=== PATIENT | female | born 1985 | race Caucasian/White ===

== ENCOUNTER 2019-02-28 10:28 | Emergency (ER) | payer BC, MEDICAID ==
--- NOTE | 2019-02-28 10:37 | EDM.PDOC ---
ED HPI GENERAL MEDICAL PROBLEM - General Chief Complaint: Lower Extremity Injury/Pain Stated Complaint: Left ankle pain Time Seen by Provider: 02/28/19 10:30 Source of Information: Reports: Patient, Family (Sister, Skye), Old Records ( [facility] chart/EMR) History Limitations: Reports: No Limitations - History of Present Illness INITIAL COMMENTS - FREE TEXT/NARRATIVE: The patient was brought to the emergency room via private automobile by her sister for evaluation of 8/10 sharp throbbing left ankle pain after she tripped at her sister's home at about 00:30 hours this past evening. Symptoms have been refractory to topical ice packs and 600 mg of ibuprofen, which was taken at 10 AM this morning. She has not injured this ankle in the past. Patient has been able to bear weight on her ankle with no history of instability, paresthesias, neurological deficits, neck/back pain, or other significant fall/injury. No recent history of abdominal pain, heartburn, nausea, diarrhea, melena, gross hematochezia, or any food intolerance, including fatty foods, etc.. The patient also denies any recent fever, cough, wheezing, dyspnea, etc.. Onset: Today, Sudden Onset Date: 02/28/19 Onset Time: 00:30 Duration: Constant Location: Reports: Lower Extremity, Left. 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 Left Ankle Pain Score (Numeric/FACES): 8 - Related Data Allergies Allergy/AdvReac Type Severity Reaction Status Date / Time Sulfa (Sulfonamide Allergy Rash Verified 02/28/19 11:23 Antibiotics) sulfamethoxazole Allergy Rash Verified 02/28/19 11:23 [From Bactrim] trimethoprim [From Bactrim] Allergy Rash Verified 02/28/19 11:23 Past Medical History 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 - Past Imaging History Past Imaging History: Reports: Ultrasound (Multiple previous OB ultrasounds) Social & Family History - Tobacco Use Smoking Status *Q: Current Every Day Smoker Tobacco Use Within Last Twelve Months: Cigarettes Years of Tobacco use: 17 Packs/Tins Daily: 0.5 Packs/Tins Daily Comment: Started smoking at age 14 with maximum use of one pack per day. Used Tobacco, but Quit: No Smoking Cessation Information Provided To Patient: Yes - Caffeine Use Caffeine Use: Reports: Coffee (One cup per day). 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 ED EXAM, GENERAL - Physical Exam Exam: See Below Exam Limited By: No Limitations General Appearance: Alert, WD/WN, No Apparent Distress Head: Atraumatic, Normocephalic. No: Facial Swelling, Facial Tenderness, Sinus Tenderness Neck: Normal Inspection, Supple, Non-Tender, Full Range of Motion. No: Lymphadenopathy (L), Lymphadenopathy (R), Thyromegaly Respiratory/Chest: No Respiratory Distress, No Accessory Muscle Use, Chest Non- Tender, Rhonchi (Occasional bilateral). No: Rales, Wheezing Cardiovascular: Normal Peripheral Pulses, Regular Rate, Rhythm, No Edema, No Gallop, No JVD, No Murmur, No Rub. No: Gallop/S4, Friction Rub Peripheral Pulses: 2+: Radial (L), Radial (R), Dorsalis Pedis (L) GI/Abdominal: Normal Bowel Sounds, Soft, Non-Tender, No Organomegaly, No Distention, No Abnormal Bruit, No Mass, Pelvis Stable. No: Guarding (Female) Exam: Deferred Rectal (Female) Exam: Deferred Back Exam: Normal Inspection, Full Range of Motion. No: CVA Tenderness (L), CVA Tenderness (R), Muscle Spasm Extremities: No Pedal Edema, Normal Capillary Refill, Joint Swelling (Mild lateral left malleolar effusion with moderate localized tenderness and secondary decreased range of motion with no joint instability including negative anterior drawers, etc.), Leg Pain (Left ankle), Limited Range of Motion (As above). No: Grayson's Sign, Increased Warmth Neurological: Alert, Oriented, CN II-XII Intact, Normal Cognition, Normal Gait, Normal Reflexes (Negative Babinski's), No Motor/Sensory Deficits Psychiatric: Normal Affect, Normal Mood Skin Exam: Warm, Dry, Intact, Normal Color, No Rash. No: Diaphoretic, Ecchymosis, Wound/Incision Lymphatic: No Adenopathy ED TRAUMA EXTREMITY PROCEDURES - Splinting Left Lower Extremity Pre-Procedure NV Status: Normal Post-Procedure NV Status: Normal Splint Material: Air Splint Splint Design: Other (Air ankle splint with four-inch Narayan wrap) Applied & Form Fitted By: Nurse Provider Post-Splint Application NV Check: NV Status Normal, Good Position Complications: No Course - Vital Signs Last Recorded V/S: Last Vital Signs Temp 36.8 C 02/28/19 10:40 Pulse 82 02/28/19 10:40 Resp 18 02/28/19 10:40 BP 122/64 02/28/19 10:40 Pulse Ox 100 02/28/19 10:40 Vital Signs - 24 hr 02/28/19 10:40 Temperature [ 36.8 C Temporal] Pulse, 82 Peripheral [ Left Pulse Oximetry] Respiratory 18 Rate Blood Pressure 122/64 [Left Upper Arm ] O2 Sat by Pulse 100 Oximetry - Orders/Labs/Meds Orders: Active Orders 24 hr Category Date Time Status Ankle Min 3V Lt [CR] Stat Exams 02/28/19 10:37 Taken Durable Medical Equipment for Discharge [DME for Oth 02/28/19 11:27 Ordered Discharge] [COMM] Routine Durable Medical Equipment for Discharge [DME for Oth 02/28/19 11:28 Ordered Discharge] [COMM] Routine Obtain Past Medical Record [OM.PC] Routine Ot 02/28/19 10:37 Active Labs: None Meds: none - Radiology Interpretation Free Text/Narrative:: X-rays of the left ankle, 3 views, shows no evidence of fracture, dislocation, etc. Ankle mortise is intact. Departure - Departure Time of Disposition: 11:40 Disposition: Home, Self-Care 01 Condition: Good Clinical Impression: Tobacco abuse counseling Left ankle sprain Qualifiers: Encounter type: initial encounter Involved ligament of ankle: tibiofibular ligament Qualified Code(s): S93.432A - Sprain of tibiofibular ligament of left ankle, initial encounter - Discharge Information *PRESCRIPTION DRUG MONITORING PROGRAM REVIEWED*: Not Applicable *COPY OF PRESCRIPTION DRUG MONITORING REPORT IN PATIENT MAGNO: Not Applicable Instructions: Ankle Sprain Referrals: Martina Tena PA-C [Primary Care Provider] - Forms: ED Department Discharge Additional Instructions: 1. Follow up with your regular provider in 10-14 days as needed, if symptoms persist. Bring these discharge instructions with you to that visit.. 2. Followup with your regular provider in 10-14 days as directed. Bring these discharge instructions with you to that visit. 3. Ice packs and leg elevation as directed 4. Wear Narayan wrap and air ankle splint at all times with exception of bathing for one week then as needed thereafter 5. Ambulation and weightbearing as tolerated/directed 6. Stop all tobacco use NELDA as directed/per provided information and consider contacting Quit LIne, etc.. 7. Immediately after this visit verify that your cellular telephone's voicemail has been activated and is empty. Also verify that your home telephone 's answering machine is operating properly and has space to receive messages. Note that it is sometimes necessary for us to be able to contact you at a later date to discuss your medical care. 8. Please remember that we are ALWAYS here for you and want to answer any questions you may have. Feel free to call the hospital any time and we call you back NELDA. - Problem List & Annotations (1) Left ankle sprain SNOMED Code(s): 71780811, [id number] Code(s): S93.402A - SPRAIN OF UNSPECIFIED LIGAMENT OF LEFT ANKLE, INIT ENCNTR Status: Acute Priority: High Current Visit: No Onset Date: Annotation/Comment:: Patient placed in an air ankle splint with additional Narayan wrap. She does not wish to have crutches or a work excuse. Symptomatic relief as per discharge instructions. Activity restrictions, etc. discussed. The patient does feel that she can perform her normal work duties with Narayan wrap and air ankle splint. Qualifiers: Encounter type: initial encounter Involved ligament of ankle: tibiofibular ligament Qualified Code(s): S93.432A - Sprain of tibiofibular ligament of left ankle, initial encounter (2) Tobacco abuse counseling SNOMED Code(s): 638511441, 950784065, 066460114 Code(s): Z71.6 - TOBACCO ABUSE COUNSELING Status: Chronic Priority: Medium Current Visit: No Annotation/Comment:: Tobacco cessation strongly encouraged with information provided at discharge. - Problem List Review Problem List Initiated/Reviewed/Updated: Yes - My Orders Last 24 Hours: My Active Orders 02/28/19 10:37 Ankle Min 3V Lt [CR] Stat Obtain Past Medical Record [OM.PC] Routine 02/28/19 11:27 Durable Medical Equipment for Discharge [DME for Discharge] [COMM] Routine 02/28/19 11:28 Durable Medical Equipment for Discharge [DME for Discharge] [COMM] Routine - Assessment/Plan Last 24 Hours: My Active Orders 02/28/19 10:37 Ankle Min 3V Lt [CR] Stat Obtain Past Medical Record [OM.PC] Routine 02/28/19 11:27 Durable Medical Equipment for Discharge [DME for Discharge] [COMM] Routine 02/28/19 11:28 Durable Medical Equipment for Discharge [DME for Discharge] [COMM] Routine Assessment:: As above Plan: As above. Extensive precautions were given to the patient and her sister, who are in agreement with the treatment plan. See Patient Instructions for further treatment and plan.
== END 2019-02-28 11:45 | disposition home or self-care (01) ==
LOC: LL.ED 10:28
DX: S93.432A Sprain of tibiofibular ligament of left ankle, initial encounter (principal); Z88.2 Allergy status to sulfonamides; Z88.1 Allergy status to other antibiotic agents; F17.210 Nicotine dependence, cigarettes, uncomplicated; Z71.6 Tobacco abuse counseling; W18.40XA Slipping, tripping and stumbling without falling, unspecified, initial encounter; Y92.009 Unspecified place in unspecified non-institutional (private) residence as the place of occurrence of the external cause
CPT/HCPCS: 73610-LT; 99283-25